=== PATIENT | male | born 1960 | race Caucasian/White ===

== ENCOUNTER 2017-06-07 20:37 | Emergency (ER) | payer MEDICAID ==
[2017-06-07] MEDS ORDERED: KETOROLAC 60 MG/2 ML VIAL IVP STA (20:53)
[2017-06-07] MEDS ORDERED: SODIUM CHLORIDE 0.9% 1,000 ML IV ONE (20:53)
[2017-06-07] MEDS ORDERED: ACETAMINOPHEN 500 MG TABLET PO STA (20:54)
[2017-06-07] MEDS ORDERED: KETOROLAC 15 MG/ML VIAL ONE (21:02)
[2017-06-07] MEDS ORDERED: ACETAMINOPHEN 500 MG TABLET PO ONE (21:02)
[2017-06-07 21:09] LABS: BASOPHILS % (AUTO) 0.5 %; EOSINOPHILS # (AUTO) 0.1 10^3/uL (0.0-0.7); EOSINOPHILS % (AUTO) 1.9 %; HGB - HEMOGLOBIN 15.6 g/dL (14.0-18.0); LYMPHOCYTES # (AUTO) 0.8 10^3/uL (1.5-3.5); LYMPHOCYTES % (AUTO) 14.3 %; MEAN CORPUSCULAR HEMOGLOBIN 32.1 pg (27.0-31.0); MEAN CORPUSCULAR VOLUME 94.4 fL (80.0-94.0); MEAN PLATELET VOLUME 7.5 fL (7.4-11.4); MONOCYTES # (AUTO) 0.5 10^3/uL (0.0-1.0); MONOCYTES % (AUTO) 9.9 %; NEUTROPHILS # (AUTO) 3.9 10^3/uL (1.5-6.6); NEUTROPHILS % (AUTO) 73.4 %; NUCLEATED RED BLOOD CELLS AUTO 0.1 /100WBC; RED BLOOD COUNT 4.87 10^6/uL (4.70-6.10); RED CELL DISTRIBUTION WIDTH 13.7 % (12.0-15.0); UNCORRECTED WHITE BLOOD COUNT 5.3 x10^3/uL; WHITE BLOOD COUNT 5.3 x10^3/uL (4.8-10.8)
[2017-06-07 21:26] LABS: ALBUMIN/GLOBULIN RATIO 1.1 (1.0-2.2); BILIRUBIN,TOTAL 0.8 mg/dL (0.2-1.0); CALCIUM 8.8 mg/dL (8.5-10.3); CREATININE 0.9 mg/dL (0.6-1.2); POTASSIUM 3.9 mmol/L (3.5-5.0); TOTAL PROTEIN 7.8 g/dL (6.7-8.2)
--- NOTE | 2017-06-07 21:46 | XRAY Preliminary Report ---
Exam: XR CHEST 2 VIEW PA/LAT IMPRESSION: Negative chest. [facility] SITE ID: [id number]
--- NOTE | 2017-06-07 21:49 | XRAY Report ---
EXAM: CHEST RADIOGRAPHY EXAM DATE: 06/07/2017 09:20 PM. CLINICAL HISTORY: Fever, cough. COMPARISON: None. TECHNIQUE: 2 views. FINDINGS: Lungs/Pleura: No focal opacities evident. No pleural effusion. No pneumothorax. Normal volumes. Mediastinum: Heart and mediastinal contours are unremarkable. Other: None. IMPRESSION: Negative chest. [facility] Referring Provider Line: [phone] SITE ID: [id number]
--- NOTE | 2017-06-07 21:51 | ED Physician Documentation ---
PD HPI DYSPNEA - Stated complaint Stated Complaint: FLU SYMPTOMS - Chief complaint Chief Complaint: General - History obtained from History obtained from: Patient - History of Present Illness Timing - onset: How many days ago (3) Timing - details: Gradual onset, Still present Inciting event(s): URI Worsened by: Coughing Associated symptoms: Fever, Cough, Diaphoresis. No: Wheezing, Chest pain / discomfort Similar symptoms before: Has not had sx before Recently seen: Not recently seen - Additional information Additional information: Patient is a 57 year old male with no significant past medical history who is presenting to the emergency department for fever, chills, cough and body aches. patient states that he recently went today to [place], the last day he was there he started to get sick with fevers. He flew home a few days ago and the symptoms persisted. Review of Systems Constitutional: reports: Fever, Chills, Myalgias, Sweats Eyes: denies: Decreased vision, Photophobia Ears: denies: Ear pain Nose: reports: Rhinorrhea / runny nose, Congestion, Sinus pressure / pain Throat: denies: Sore throat Cardiac: denies: Chest pain / pressure, Palpitations Respiratory: reports: Dyspnea, Cough. denies: Wheezing GI: denies: Abdominal Pain, Nausea, Vomiting : reports: Reviewed and negative Skin: reports: Reviewed and negative Musculoskeletal: reports: Reviewed and negative Neurologic: denies: Generalized weakness, Focal weakness Immunocompromised: denies: Immunocompromised PD PAST MEDICAL HISTORY - Past Medical History Past Medical History: Yes Cardiovascular: None Respiratory: None Neuro: None Endocrine/Autoimmune: None - Past Surgical History Past Surgical History: Yes General: Colonoscopy - Present Medications Home Medications: Ambulatory Orders Medication Instructions Recorded Confirmed HYDROcod/ACETAM 5/325 [[place] 5/325] 1 - 2 ea PO Q6H PRN #15 tablet 07/02/16 Ondansetron Odt [Zofran] 4 mg TL Q6H PRN #14 tablet 06/07/17 - Allergies Allergies/Adverse Reactions: Allergies Allergy/AdvReac Type Severity Reaction Status Date / Time No Known Drug Allergies Allergy Verified 06/07/17 20:48 - Social History Does the pt smoke?: Yes Smoking Status: Current every day smoker Does the pt drink ETOH?: Yes Does the pt have substance abuse?: No - Immunizations Immunizations are current?: No Immunizations: TDAP >10years/unknown - POLST Patient has POLST: No PD ED PE NORMAL - Vitals Vital signs reviewed: Yes - General General: Alert and oriented X 3, Well developed/nourished, Other (clammy, uncomfortable) - HEENT HEENT: Atraumatic, PERRL - Neck Neck: Supple, no meningeal sign - Cardiac Cardiac: RRR, No murmur - Respiratory Respiratory: Clear bilaterally - Abdomen Abdomen: Soft, Non tender, Non distended - Derm Derm: No rash - Extremities Extremities: No deformity, Normal ROM s pain - Neuro Neuro: Alert and oriented X 3, No motor deficit, No sensory deficit, Normal speech - Psych Psych: Normal mood PD ED PE EXPANDED - HEENT HEENT: Nasal congestion, Rhinorrhea, Dry mucous membranes Results - Vitals Vitals: Vital Signs - 24 hr 06/07/17 06/07/17 06/07/17 20:46 20:52 21:59 Temperature 39.5 C H 38.1 C H Heart Rate 98 100 91 Respiratory 22 20 18 Rate Blood Pressure 160/81 H 124/72 O2 Saturation 97 97 93 Oxygen O2 Source Room air - Labs Labs: Laboratory Tests 06/07/17 06/07/17 06/07/17 21:01 21:01 21:09 WBC 5.3 RBC 4.87 Hgb 15.6 Hct 46.0 MCV 94.4 H MCH 32.1 H MCHC 34.0 RDW 13.7 Plt Count 121 L MPV 7.5 Neut # 3.9 Lymph # 0.8 L [place] # 0.5 Eos # 0.1 Baso # 0.0 Absolute Nucleated RBC 0.00 Nucleated RBC % 0.1 Sodium 132 L Potassium 3.9 Chloride 101 Carbon Dioxide 21 Anion Gap 10.0 BUN 12 Creatinine 0.9 Estimated GFR (MDRD) 87 L Glucose 101 H Calcium 8.8 Total Bilirubin 0.8 AST 27 ALT 30 Alkaline Phosphatase 39 L Total Protein 7.8 Albumin 4.0 Globulin 3.8 Albumin/Globulin Ratio 1.1 Lipase 33 Influenza A (Rapid) POSITIVE H Influenza B (Rapid) Negative Influenza Types A,B Ag + H - Rads (name of study) chest x-ray Radiology: Final report received (normal chest x-ray) PD MEDICAL DECISION MAKING - ED course Complexity details: reviewed old records, reviewed results, re-evaluated patient , considered differential, d/w patient, d/w family ED course: Patient was seen and examined at bedside. IV access was gained and labs were drawn. patient was treated with IV fluids, toradol and tylenol. chest x-ray was performed and was within normal limits. Patient's flu swab came back positive. Patient responded well to therapy, was able to tolerate PO and was stable for discharge with outpatient follow up. Departure - Departure Disposition: Home, Self Care Clinical Impression: Influenza A Condition: Good Instructions: ED Flu Follow-Up: primary,care provider [Other] - As Needed Prescriptions: Ondansetron Odt [Zofran] 4 mg TL Q6H PRN #14 tablet PRN Reason: Nausea / Vomiting Comments: Your symptoms today are being caused by influenza A. It is normally self limited in nature and there is nothing to cure it so we just treat the symptoms. You can take motrin/advil or tylenol as needed for fevers or chills. You can take zofran for nausea and make sure you stay well hydrated. You should drink 80-100oz daily. You may return to the emergency department at any time for new, worsening or uncontrollable symptoms.
[2017-06-07 22:00] VITALS: BP 124/72
== END 2017-06-07 22:05 | disposition home or self-care (01) ==
LOC: ED 20:37
DX: J10.1 Influenza due to other identified influenza virus with other respiratory manifestations (principal); F17.200 Nicotine dependence, unspecified, uncomplicated
CPT/HCPCS: 36415; 71020; 80053; 83690; 85025; 87275; 87276; 96374; 99283; 99284; A9270

== ENCOUNTER 2017-06-16 13:47 | Emergency (ER) | payer MEDICAID ==
--- NOTE | 2017-06-16 14:19 | ED Physician Documentation ---
PD HPI FOCAL NEURO - Stated complaint Stated Complaint: DIZZY - Chief complaint Chief Complaint: Neuro - History obtained from History obtained from: Patient - History of Present Illness Timing - onset: Other (57-year-old gentleman without significant past medical history, family history is unknown because of certain adoption situation. He has had mild vertigo before but today he was sitting watching TV about an hour ago and without really moving or turning his head he developed sudden onset severe vertigo with mild nausea and slight posterior headache. He got up and tried to go to the bathroom and was veering to the left. Symptoms are much better now but not gone he declines medication for this. There is no associated chest pain or trouble breathing.) Review of Systems Ten Systems: 10 systems reviewed and negative Constitutional: reports: Reviewed and negative Nose: reports: Reviewed and negative Throat: reports: Reviewed and negative Cardiac: reports: Reviewed and negative Respiratory: reports: Reviewed and negative PD PAST MEDICAL HISTORY - Past Medical History Past Medical History: No Cardiovascular: None Respiratory: None Neuro: None Endocrine/Autoimmune: None - Past Surgical History Past Surgical History: Yes General: Colonoscopy - Present Medications Home Medications: Ambulatory Orders Medication Instructions Recorded Confirmed Meclizine HCl 1 tab PO Q6H PRN #15 tab.chew 06/16/17 - Allergies Allergies/Adverse Reactions: Allergies Allergy/AdvReac Type Severity Reaction Status Date / Time No Known Drug Allergies Allergy Verified 06/07/17 20:48 - Social History Does the pt smoke?: Yes Smoking Status: Current every day smoker Does the pt drink ETOH?: Yes Does the pt have substance abuse?: No - Family History Family history: reports: None - Immunizations Immunizations are current?: No Immunizations: TDAP >10years/unknown - POLST Patient has POLST: No PD ED PE NORMAL - Vitals Vital signs reviewed: Yes - General General: Alert and oriented X 3, No acute distress - HEENT HEENT: PERRL, EOMI, Other (Slight nystagmus with leftward gaze) - Neck Neck: Supple, no meningeal sign, No bony TTP - Cardiac Cardiac: RRR, No murmur - Respiratory Respiratory: No respiratory distress, Clear bilaterally - Abdomen Abdomen: Soft, Non tender - Neuro Neuro: Alert and oriented X 3, Normal speech - Psych Psych: Normal mood, Normal affect NIHSS - Time Time: 14:10 - Level of Consciousness Level of consciousness: (0) Alert, Keenly responsive LOC Questions: (0) Answers both Q's correct LOC Commands: (0) Performs both correctly - Gaze Best Gaze: (0) Normal - Visual Visual: (0) No loss - Facial Palsy Facial Palsy: (0) Normal, symmetrical movement - Motor Arms (both separate) Motor Arm (right): (0) No drift Motor Arm (left): (0) No drift - Motor Legs (both separate) Motor Leg (right): (0) No drift Motor Leg (left): (0) No drift - Limb Ataxia Limb Ataxia: (0) Absent - Best Language Best Language: (0) No aphasia - Dysarthria Dysarthria: (0) Normal - Extinction and Inattention (formally neg Extinction and inattention: (0) No abnormality Results - Vitals Vitals: Vital Signs - 24 hr 06/16/17 06/16/17 13:53 16:51 Temperature 36.6 C 36.1 C L Heart Rate 88 76 Respiratory 16 20 Rate Blood Pressure 124/84 H 120/76 O2 Saturation 96 94 Oxygen O2 Source Room air - EKG (time done) 1356 Rate: Rate (enter#) (89) Rhythm: NSR Intervals: Other (LAFB) QRS: Normal Ischemia: Normal ST segments Computer interpretation: Agree with computer - Labs Labs: Laboratory Tests 06/16/17 06/16/17 06/16/17 14:30 14:30 14:30 WBC 8.3 RBC 4.97 Hgb 16.2 Hct 46.1 MCV 92.8 MCH 32.7 H MCHC 35.2 RDW 13.9 Plt Count 156 MPV 7.8 Neut # 5.9 Lymph # 1.6 Carter # 0.4 Eos # 0.3 Baso # 0.1 Absolute Nucleated RBC 0.00 Nucleated RBC % 0.1 Sodium 136 Potassium 3.7 Chloride 104 Carbon Dioxide 23 Anion Gap 9.0 BUN 13 Creatinine 0.8 Estimated GFR (MDRD) 100 Glucose 149 H Calcium 9.2 Total Bilirubin 1.0 AST 28 ALT 39 Alkaline Phosphatase 43 Troponin I < 0.04 Total Protein 7.9 Albumin 3.9 Globulin 4.0 Albumin/Globulin Ratio 1.0 Lipase 32 - Rads (name of study) MRI Brain Radiology: EMP read contemporaneously (NAD) PD MEDICAL DECISION MAKING - ED course ED course: 57-year-old gentleman with acute severe vertigo, it is concerning that it started without motion, most cases peripheral vertigo start with head rotation, and this did not. That said there are no findings of stroke on exam, but because of the atypical history and MRI was pursued and was also negative. Departure - Departure Disposition: 01 Home, Self Care Clinical Impression: Vertigo Condition: Good Record reviewed to determine appropriate education?: Yes Instructions: ED Vertigo Unspecified Prescriptions: Meclizine HCl 1 tab PO Q6H PRN #15 tab.chew PRN Reason: Vertigo Comments: Call your doctor to arrange a follow-up appointment, make the next available appointment. In the interim, return anytime if worse or if new symptoms develop.
[2017-06-16 14:37] LABS: BASOPHILS # (AUTO) 0.1 10^3/uL (0.0-0.1); BASOPHILS % (AUTO) 1.1 %; EOSINOPHILS # (AUTO) 0.3 10^3/uL (0.0-0.7); EOSINOPHILS % (AUTO) 3.2 %; HCT - HEMATOCRIT 46.1 % (42.0-52.0); HGB - HEMOGLOBIN 16.2 g/dL (14.0-18.0); LYMPHOCYTES # (AUTO) 1.6 10^3/uL (1.5-3.5); LYMPHOCYTES % (AUTO) 19.8 %; MEAN CORPUSCULAR HEMOGLOBIN 32.7 pg (27.0-31.0); MEAN CORPUSCULAR HGB CONC 35.2 g/dL (32.0-36.0); MEAN CORPUSCULAR VOLUME 92.8 fL (80.0-94.0); MEAN PLATELET VOLUME 7.8 fL (7.4-11.4); MONOCYTES # (AUTO) 0.4 10^3/uL (0.0-1.0); NEUTROPHILS # (AUTO) 5.9 10^3/uL (1.5-6.6); NEUTROPHILS % (AUTO) 70.9 %; NUCLEATED RED BLOOD CELLS AUTO 0.1 /100WBC; RED BLOOD COUNT 4.97 10^6/uL (4.70-6.10); RED CELL DISTRIBUTION WIDTH 13.9 % (12.0-15.0); UNCORRECTED WHITE BLOOD COUNT 8.3 x10^3/uL; WHITE BLOOD COUNT 8.3 x10^3/uL (4.8-10.8)
[2017-06-16 14:50] LABS: CALCIUM 9.2 mg/dL (8.5-10.3); CREATININE 0.8 mg/dL (0.6-1.2); POTASSIUM 3.7 mmol/L (3.5-5.0); TOTAL PROTEIN 7.9 g/dL (6.7-8.2)
[2017-06-16] MEDS ORDERED: diazePAM INJ 5 MG/ML SYRINGE IVP STA (15:25)
[2017-06-16] MEDS ORDERED: LORazepam 2 MG/ML SYRINGE IVP STA (15:28)
[2017-06-16] MEDS ORDERED: LORazepam 2 MG/ML SYRINGE ONE (15:34)
[2017-06-16 16:52] VITALS: BP 120/76
--- NOTE | 2017-06-16 16:52 | MRI Preliminary Report ---
Exam: MRI BRAIN W/O Impression: 1. Unremarkable, unenhanced MRI examination of the internal auditory canals. In particular, there is no evidence of a vestibular schwannoma. 2. Unremarkable MRI examination of the brain. In particular, no evidence of infarction, hemorrhage or other acute pathology SITE ID: [id number]
--- NOTE | 2017-06-16 17:18 | MRI Report ---
MRI BRAIN AND INTERNAL AUDITORY CANALS WITHOUT CONTRAST INDICATION: 57-year-old male with sudden onset severe vertigo with mild nausea and posterior headache . Please assess. TECHNIQUE: 1. T1 sagittal and fat-saturated T2 coronal. 2. Axial T1 MP RAGE, FLAIR, T2, T2* and DWI. 3. Thin slice, high-resolution, balanced FFE axial (IACs). COMPARISON: None. FINDINGS: Internal auditory canals The distal cochlear nerve bundles are well seen in the CP angle cisterns and internal auditory canals bilaterally. No focal mass lesion is demonstrated. Normal fluid-filled spaces are seen in the distri bution of the cochlea, vestibules and semicircular canals bilaterally. There is no dehiscence of eith er superior semicircular canal. Brain There is mild generalized prominence of the cerebral cortical sulci and third and lateral ventricles, within normal limits for stated age. No hydrocephalus. Signal intensity of cortex and white matter appears normal. Flow voids are demonstrated in the main intracranial arteries. No abnormal diffusion restriction is d emonstrated. No evidence of acute or chronic hemorrhage on T2* GRE sequence. Limited assessment of the orbits reveals no gross pathology. There is circumferential, polypoid mucosal thickening in the right maxillary sinus. No definite air-f luid level is demonstrated. There is minor mucosal thickening scattered throughout the ethmoid air ce lls. The paranasal sinuses are otherwise clear. No mastoid or middle ear effusion is demonstrated. Marrow signal intensity in the regional skeletal structures is unremarkable. IMPRESSION: 1. Unremarkable, unenhanced MRI examination of the internal auditory canals. In particular, there is no evidence of a vestibular schwannoma. 2. Unremarkable MRI examination of the brain. In particular, no evidence of infarction, hemorrhage or other acute pathology. Referring Provider Line: [phone] SITE ID: [id number]
== END 2017-06-16 17:21 | disposition home or self-care (01) ==
LOC: ED 13:47
DX: R42 Dizziness and giddiness (principal); I44.4 Left anterior fascicular block; F17.200 Nicotine dependence, unspecified, uncomplicated
CPT/HCPCS: 36415; 70551; 80053; 83690; 84484; 85025; 93005; 96374; 99283; 99284; J2060

== ENCOUNTER 2018-10-06 14:06 | Emergency (ER) | payer MEDICAID ==
[2018-10-06 14:20] VITALS: BP 136/86
[2018-10-06] MEDS ORDERED: DEXAMETHASONE 10 MG/ML VIAL PO STA (14:38)
--- NOTE | 2018-10-06 14:40 | ED Physician Documentation ---
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 He is developed some swelling and pain in that area and when he blows his nose he is getting a lot of foul-smelling green drainage. He has not had fever with this he has not had sinusitis previously. He does indicate that pain is gone into his ear on the left side and on his face up to his eye. Review of Systems Constitutional: denies: Fever Eyes: denies: Decreased vision Ears: reports: Ear pain Nose: reports: Rhinorrhea / runny nose, Congestion, Sinus pressure / pain Throat: denies: Sore throat Cardiac: denies: Chest pain / pressure, Palpitations Respiratory: denies: Dyspnea, Cough GI: denies: Vomiting PD PAST MEDICAL HISTORY - Past Medical History Past Medical History: No Cardiovascular: None Respiratory: None Endocrine/Autoimmune: None - Past Surgical History Past Surgical History: Yes General: Colonoscopy - Present Medications Home Medications: Ambulatory Orders Medication Instructions Recorded Confirmed Amox/Clav 875/125 [Augmentin] 1 each PO Q12H #20 tablet 10/06/18 - Allergies Allergies/Adverse Reactions: Allergies Allergy/AdvReac Type Severity Reaction Status Date / Time No Known Drug Allergies Allergy Verified 10/06/18 14:20 - Social History Does the pt smoke?: Yes Smoking Status: Current every day smoker Does the pt drink ETOH?: Yes Does the pt have substance abuse?: No - Immunizations Immunizations are current?: No Immunizations: TDAP >10years/unknown - POLST Patient has POLST: No PD ED PE NORMAL - Vitals Vital signs reviewed: Yes (hypertension ) - General General: Alert and oriented X 3, No acute distress, Well developed/nourished - HEENT HEENT: Atraumatic, PERRL, EOMI, Other (There is central erythema and rounding of the umbo on the left the right is obscured by cerumen and this is removed partially to reveal some peripheral erythema to the TM. There is maxillary and frontal sinus point tenderness on the right only. 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 2-12 intact, No motor deficit, No sensory deficit, Normal speech Eye Opening: Spontaneous Motor: Obeys Commands Verbal: Oriented GCS Score: 15 - Psych Psych: Normal mood, Normal affect Results - Vitals Vitals: Vital Signs - 24 hr 10/06/18 14:10 Temperature 36.8 C Heart Rate 88 Respiratory 16 Rate Blood Pressure 136/86 H O2 Saturation 97 Oxygen O2 Source Room air PD MEDICAL DECISION MAKING - ED course Complexity details: considered differential, d/w patient, d/w family ED course: 58-year-old male with left maxillary sinusitis is administered dexamethasone 10 mg orally here in the emergency department. Departure - Departure Disposition: Home, Self Care Clinical Impression: Sinusitis Qualifiers: Sinusitis location: maxillary Chronicity: acute Recurrence: not specified as recurrent Qualified Code(s): J01.00 - Acute maxillary sinusitis, unspecified Condition: Stable Instructions: ED Sinusitis Abx Tx Follow-Up: [facility] [Provider Group] Prescriptions: Amox/Clav 875/125 [Augmentin] 1 each PO Q12H #20 tablet
== END 2018-10-06 14:50 | disposition home or self-care (01) ==
LOC: ED 14:06
DX: J01.00 Acute maxillary sinusitis, unspecified (principal); F17.200 Nicotine dependence, unspecified, uncomplicated
CPT/HCPCS: 99283

== ENCOUNTER 2020-06-06 03:19 | Outpatient (CLI) | payer MEDICAID | END 2020-06-06 03:20 | disposition critical access hospital (66) | LOC: EMS 03:19 | PROVIDERS: ATTEND Surgery | DX: R56.9 Unspecified convulsions (principal); R61 Generalized hyperhidrosis | CPT/HCPCS: A0425; A0427; A0999 ==

== ENCOUNTER 2020-06-06 03:32 | Emergency (ER) | payer MEDICAID ==
[2020-06-06] MEDS ORDERED: SODIUM CHLORIDE 0.9% 1,000 ML IV STA ×2 (03:44→05:06)
[2020-06-06 04:00] LABS: BASOPHILS # (AUTO) 0.1 10^3/uL (0.0-0.1); BASOPHILS % (AUTO) 0.6 %; EOSINOPHILS # (AUTO) 0.2 10^3/uL (0.0-0.7); EOSINOPHILS % (AUTO) 2.3 %; HGB - HEMOGLOBIN 16.9 g/dL (14.0-18.0); LYMPHOCYTES # (AUTO) 1.3 10^3/uL (1.5-3.5); LYMPHOCYTES % (AUTO) 15.1 %; MEAN CORPUSCULAR HEMOGLOBIN 33.3 pg (27.0-31.0); MEAN CORPUSCULAR HGB CONC 33.9 g/dL (32.0-36.0); MEAN CORPUSCULAR VOLUME 98.2 fL (80.0-94.0); MEAN PLATELET VOLUME 9.1 fL (7.4-11.4); MONOCYTES # (AUTO) 0.6 10^3/uL (0.0-1.0); MONOCYTES % (AUTO) 6.8 %; NEUTROPHILS # (AUTO) 6.5 10^3/uL (1.5-6.6); NEUTROPHILS % (AUTO) 74.7 %; PLT - PLATELET COUNT 161 10^3/uL (130-450); RED BLOOD COUNT 5.07 10^6/uL (4.70-6.10); WHITE BLOOD COUNT 8.7 x10^3/uL (4.8-10.8)
[2020-06-06 04:12] LABS: ALBUMIN 4.4 g/dL (3.2-5.5); ALBUMIN/GLOBULIN RATIO 1.1 (1.0-2.2); ALKALINE PHOSPHATASE 46 IU/L (42-121); ALT ALANINE AMINOTRANSFERASE 29 IU/L (10-60); AST ASPARTATE AMINOTRANSFERASE 25 IU/L (10-42); BILIRUBIN,TOTAL 1.3 mg/dL (0.2-1.0); BUN - BLOOD UREA NITROGEN 19 mg/dL (6-20); CALCIUM 9.5 mg/dL (8.5-10.3); CARBON DIOXIDE - CO2 21 mmol/L (21-32); CHLORIDE 104 mmol/L (101-111); CREATININE 0.9 mg/dL (0.6-1.2); GLUCOSE 186 mg/dL (70-100); LIPASE 29 U/L (22-51); SODIUM 136 mmol/L (135-145); TOTAL PROTEIN 8.4 g/dL (6.7-8.2)
--- NOTE | 2020-06-06 04:13 | ED Physician Documentation ---
History of Present Illness - Stated complaint Stated Complaint: POSS SZ - Chief complaint Chief Complaint: Neuro - History obtained from History obtained from: Patient, EMS - Additonal information Additional information: Is brought to the emergency department by EMS after being found to have seizure- like activity tonight while lying in bed. His observed him to have shaking of his limbs and EMS reports that the patient seemed postictal for about 15 minutes while on their care. The patient is now alert and oriented, but does not remember the incident. He states that he has not felt well for the last couple of days with some nausea. He states he has not been able to sleep very well for the last 2 nights, due to not sleeping well. Feeling well. He states he has a mild headache right now. No recent head injury. No personal or family history of seizures that he knows of, though he states that he does not really know his biological family. Patient states he drinks alcohol regularly but has not been drinking heavily and has not had a recent lapse in drinking. No recent diarrhea. Patient states as far as he knows he is otherwise healthy. No other complaints at this time. Review of Systems Ten Systems: 10 systems reviewed and negative Constitutional: reports: Reviewed and negative Eyes: reports: Reviewed and negative Ears: reports: Reviewed and negative Nose: reports: Reviewed and negative Throat: reports: Reviewed and negative Cardiac: reports: Reviewed and negative Respiratory: reports: Reviewed and negative GI: reports: Nausea, Reviewed and negative : reports: Reviewed and negative Skin: reports: Reviewed and negative Musculoskeletal: reports: Reviewed and negative Neurologic: reports: Headache Psychiatric: reports: Reviewed and negative Endocrine: reports: Reviewed and negative Immunocompromised: reports: Reviewed and negative PD PAST MEDICAL HISTORY - Past Medical History Past Medical History: Yes Cardiovascular: None Respiratory: None Endocrine/Autoimmune: None - Past Surgical History Past Surgical History: Yes General: Colonoscopy - Present Medications Home Medications: Ambulatory Orders Medication Instructions Recorded Confirmed Amox/Clav 875/125 [Augmentin] 1 each PO Q12H #20 tablet 10/06/18 - Allergies Allergies/Adverse Reactions: Allergies Allergy/AdvReac Type Severity Reaction Status Date / Time No Known Drug Allergies Allergy Verified 06/06/20 03:37 - Social History Does the pt smoke?: Yes Smoking Status: Current every day smoker Does the pt drink ETOH?: Yes Does the pt have substance abuse?: No - Immunizations Immunizations are current?: No Immunizations: TDAP >10years/unknown - POLST Patient has POLST: No PD ED PE NORMAL - Vitals Vital signs reviewed: Yes - General General: Alert and oriented X 3, No acute distress, Well developed/nourished - HEENT HEENT: Atraumatic, PERRL, EOMI, Moist mucous membranes - Neck Neck: Supple, no meningeal sign - Cardiac Cardiac: RRR, No murmur, Strong equal pulses - Respiratory Respiratory: No respiratory distress, Clear bilaterally - Abdomen Abdomen: Soft, Non tender, Non distended - Back Back: No CVA TTP, No spinal TTP - Derm Derm: Normal color, Warm and dry, No rash - Extremities Extremities: No deformity, No edema, No calf tenderness / cord - Neuro Neuro: Alert and oriented X 3, lav crewman 2-12 intact, No motor deficit, No sensory deficit, Normal speech - Psych Psych: Normal mood, Other (Slightly anxious.) Results - Vitals Vitals: Oxygen O2 Source Room air - Labs Labs: Laboratory Tests 06/06/20 06/06/20 06/06/20 03:55 03:55 05:09 WBC 8.7 RBC 5.07 Hgb 16.9 Hct 49.8 MCV 98.2 H MCH 33.3 H MCHC 33.9 RDW 14.0 Plt Count 161 MPV 9.1 Neut # (Auto) 6.5 Lymph # (Auto) 1.3 L [place] # (Auto) 0.6 Eos # (Auto) 0.2 Baso # (Auto) 0.1 Absolute Nucleated RBC 0.00 Nucleated RBC % 0.0 Sodium 136 Potassium 4.4 Chloride 104 Carbon Dioxide 21 Anion Gap 11.0 BUN 19 Creatinine 0.9 Estimated GFR (MDRD) 86 L Glucose 186 H Calcium 9.5 Total Bilirubin 1.3 H AST 25 ALT 29 Alkaline Phosphatase 46 Total Protein 8.4 H Albumin 4.4 Globulin 4.0 Albumin/Globulin Ratio 1.1 Lipase 29 Urine Color YELLOW Urine Clarity CLEAR Urine pH 7.0 Ur Specific [place] 1.025 Urine Protein 100 H Urine Glucose (UA) NEGATIVE Urine Ketones NEGATIVE Urine Occult Blood TRACE-INTA Urine Nitrite NEGATIVE Urine Bilirubin NEGATIVE Urine Urobilinogen 0.2 (NORMAL) Ur Leukocyte Esterase NEGATIVE Urine RBC 0-5 Urine WBC 0-3 Ur Squamous Epith Cells NONE SEEN Urine Bacteria None Seen Urine Mucus Few Strands Ur Microscopic Review INDICATED Urine Culture Comments NOT INDICATED Urine Opiates Screen NEGATIVE Ur Oxycodone Screen NEGATIVE Urine Methadone Screen NEGATIVE Ur Propoxyphene Screen NEGATIVE Ur Barbiturates Screen NEGATIVE Ur Tricyclics Screen NEGATIVE Ur Phencyclidine Scrn NEGATIVE Ur Amphetamine Screen NEGATIVE U Methamphetamines Scrn NEGATIVE U Benzodiazepines Scrn NEGATIVE Urine Cocaine Screen NEGATIVE U Cannabinoids Screen POSITIVE H Ethyl Alcohol < 5.0 - Rads (name of study) ct head Radiology: Final report received, EMP read indepedently, See rad report (Left maxillary sinus thickening, otherwise unremarkable.) PD MEDICAL DECISION MAKING - ED course Complexity details: reviewed old records, reviewed results, re-evaluated patient, considered differential, d/w patient ED course: The patient was worked up with labs, EKG, urine drug screen, and CT scan of the head. He was given a 1 L bolus point and normal saline, as well as Zofran for his nausea. And had no more seizure-like activity in the emergency department. His work-up was unremarkable. I discussed with the patient, who is fully alert and oriented at this time, that the next step is to follow-up with neurology for EEG and reevaluation. If the patient has further seizure-like activity in the next couple of days, he will need to return, as admission will most likely be warranted at that time. I have discussed with the patient that we are not going to start him on any anticonvulsants today. We have discussed home management of the symptoms, as well as the usual indications for return. Departure - Departure Disposition: 01 Home, Self Care Clinical Impression: New onset seizure Condition: Stable Instructions: Epilepsy Safety During Seizure Follow-Up: Cindy Chang MD [Physician No Access] - Sam Wright MD [Physician No Access] - Lilliana Israel MD [Physician No Access] - Jose Tam MD [Physician No Access] - AILIN MOON MD [Physician No Access] - KAMRYN NUÑEZ MD [Physician No Access] - Comments: Your labs, head CT, and urinalysis all look good. It is not clear exactly what has happened tonight, though it very well may indeed have been a seizure. As we have discussed, the next step is for you to follow-up with neurology and have an EEG, or electrical brainwave study, done. If you have further seizures in the next 24 hours, then you may need to stay in the hospital. For now, though, you may go back to your home, but should call as soon as possible to make an appointment to follow-up with both your primary care physician and neurology. Depending how your EEG looks and whether you have any further episodes like this, the neurologist will determine whether to put you on medication. As we have discussed, sometimes a person can have a single seizure without apparent explanation, and this turns out to be a one-time experience which never happens again. Others go on to have more seizures at various intervals throughout their lives. Only time will tell what will be the case with you. Please avoid alcohol and get as good of sleep as possible, as both alcohol and the cessation of its use, as well as insomnia and stress, are triggers for seizure in those who are more prone. Discharge Date/Time: 06/06/20 06:06
[2020-06-06] MEDS ORDERED: ONDANSETRON 4 MG/2 ML VIAL IVP STA (04:22)
[2020-06-06 05:10] LABS: MUDS CUTOFF CONCENTRATIONS CUTOFF CONC BELOW:
[2020-06-06 05:14] LABS: BILIRUBIN,URINE NEGATIVE (NEGATIVE); GLUCOSE, URINE (UA) NEGATIVE (NEGATIVE); KETONES,URINE (UA) NEGATIVE (NEGATIVE); LEUKOCYTE ESTERASE, URINE NEGATIVE (NEGATIVE); NITRITE,URINE NEGATIVE (NEGATIVE); OCCULT BLOOD,URINE TRACE-INTA (NEGATIVE); PROTEIN,URINE 100 mg/dL (NEGATIVE); UROBILINOGEN,URINE 0.2 (NORMAL) E.U./dL (NORMAL)
[2020-06-06 05:18] LABS: CLARITY,URINE CLEAR (CLEAR)
[2020-06-06 05:20] LABS: BACTERIA,URINE None Seen /HPF (None Seen); MUCUS,URINE Few Strands; RBC,URINE 0-5 /HPF (0-5); SQUAMOUS EPITHELIAL CELL,UR NONE SEEN (<= Few)
[2020-06-06 05:25] LABS: AMPHETAMINE SCREEN,URINE NEGATIVE (NEGATIVE); BENZODIAZEPINES SCREEN, URINE NEGATIVE (NEGATIVE); COCAINE SCREEN URINE NEGATIVE (NEGATIVE); METHADONE SCREEN, URINE NEGATIVE (NEGATIVE); METHAMPHETAMINES SCREEN, URINE NEGATIVE (NEGATIVE); OPIATE SCREEN, URINE NEGATIVE (NEGATIVE); OXYCODONE SCREEN, URINE NEGATIVE (NEGATIVE); PROPOXYPHENE SCREEN, URINE NEGATIVE (NEGATIVE); TRICYCLIC ANTIDEPRESSANT,URINE NEGATIVE (NEGATIVE)
[2020-06-06 05:52] VITALS: BP 142/80
--- NOTE | 2020-06-06 07:22 | CT Report ---
PROCEDURE: HEAD WO INDICATIONS: seizure-like activity, new-onset TECHNIQUE: Noncontrast 4.5 mm thick angled axial sections acquired from the foramen magnum to the vertex. For r adiation dose reduction, the following was used: automated exposure control, adjustment of mA and/or kV according to patient size. COMPARISON: 06/16/2017 MRI. FINDINGS: Image quality: Excellent. CSF spaces: Basal cisterns are patent. No extra-axial fluid collections. Ventricles are normal in size and shape. Brain: No midline shift. No intracranial masses or hemorrhage. Kitchen-white matter interface is norm al. Skull and face: Calvarium and visualized facial bones are intact, without suspicious lesions. Sinuses: Mucosal thickening visualized left maxillary sinus. Mastoids are clear. IMPRESSION: 1. No acute intracranial disease process. 2. Left maxillary sinus mucosal thickening which could be due to sinusitis or less likely mucocele.. Reviewed by: Smitha Cano MD, PhD on 06/06/2020 7:21 AM PST Approved by: Smitha Cano MD, PhD on 06/06/2020 7:21 AM PST Station ID: [id number]
== END 2020-06-06 06:06 | disposition home or self-care (01) ==
LOC: EDUNIT# → ED 03:32
DX: R56.9 Unspecified convulsions (principal); R11.0 Nausea; I44.60 Unspecified fascicular block; F17.200 Nicotine dependence, unspecified, uncomplicated
CPT/HCPCS: 36415; 70450; 80053; 80306; 80320; 81001; 81003; 83690; 85025; 87086; 93005; 96361; 96374; 99285

== ENCOUNTER 2021-03-19 10:00 | Emergency (ER) | payer MEDICAID ==
[2021-03-19] MEDS ORDERED: MECLIZINE 12.5 MG TABLET PO STA (10:50)
--- NOTE | 2021-03-19 11:17 | ED Physician Documentation ---
History of Present Illness - Stated complaint Stated Complaint: DIZZY - Chief complaint Chief Complaint: Neuro - History obtained from History obtained from: Patient - History of Present Illness Timing: Today Pain level max: 0 Pain level now: 0 - Additonal information Additional information: Patient is a 61-year-old male who presents to the emergency department with feeling like the room was spinning to the left earlier today. He states that occurred while driving. Worse with moving his head and standing. He states the symptoms were bad for about 3 to 4 minutes. Has had similar symptoms previously, though did not last as long and were not as severe. No trauma. No recent illness. No medication changes. No focal weakness or numbness. Review of Systems Ten Systems: 10 systems reviewed and negative Constitutional: denies: Fever, Chills Respiratory: denies: Cough GI: denies: Vomiting, Diarrhea Skin: denies: Rash Musculoskeletal: denies: Neck pain, Back pain Neurologic: denies: Headache PD PAST MEDICAL HISTORY - Past Medical History Past Medical History: Yes Cardiovascular: None Respiratory: None Neuro: None Endocrine/Autoimmune: None GI: None : None HEENT: None Psych: None Musculoskeletal: Chronic back pain Derm: None - Past Surgical History Past Surgical History: Yes General: Colonoscopy - Present Medications Home Medications: Ambulatory Orders Medication Instructions Recorded Confirmed Meclizine HCl [Motion Sickness] 25 mg PO Q6H PRN #30 tablet 03/19/21 - Allergies Allergies/Adverse Reactions: Allergies Allergy/AdvReac Type Severity Reaction Status Date / Time No Known Drug Allergies Allergy Verified 03/19/21 10:12 - Social History Does the pt smoke?: Yes Smoking Status: Current every day smoker Does the pt drink ETOH?: Yes Does the pt have substance abuse?: Yes Substance Use and Type: Marijuana - Immunizations Immunizations are current?: No Immunizations: TDAP >10years/unknown, Other immun not current - POLST Patient has POLST: No PD ED PE NORMAL - Vitals Vital signs reviewed: Yes - General General: Alert and oriented X 3, No acute distress - HEENT HEENT: Atraumatic, PERRL, EOMI, Moist mucous membranes - Neck Neck: Supple, no meningeal sign - Cardiac Cardiac: RRR, Strong equal pulses - Respiratory Respiratory: No respiratory distress, Clear bilaterally - Abdomen Abdomen: Soft, Non tender, Non distended - Back Back: No spinal TTP - Derm Derm: Warm and dry - Extremities Extremities: No edema, No calf tenderness / cord - Neuro Neuro: Alert and oriented X 3, software development test engineer 2-12 intact, No motor deficit, No sensory deficit, Normal speech, Other (No nystagmus. Negative Hallpike bilaterally.) Eye Opening: Spontaneous Motor: Obeys Commands Verbal: Oriented GCS Score: 15 - Psych Psych: Normal mood, Normal affect Results - Vitals Vitals: Vital Signs - 24 hr 03/19/21 03/19/21 03/19/21 10:13 10:21 12:45 Temperature 36.4 C L 37.3 C Heart Rate 68 67 85 Respiratory 18 18 18 Rate Blood Pressure 145/77 H 151/88 H 174/94 H O2 Saturation 97 100 97 Oxygen O2 Source Room air - EKG (time done) 1102 Rate: Rate (enter#) (61) Rhythm: NSR [place]: Normal, Anterior hemiblock (LAFB) Intervals: Prolonged HI QRS: LVH Ischemia: Normal ST segments - Labs Labs: Laboratory Tests 03/19/21 03/19/21 03/19/21 11:21 11:21 11:21 WBC 5.7 RBC 4.79 Hgb 16.1 Hct 47.5 MCV 99.2 H MCH 33.6 H MCHC 33.9 RDW 13.5 Plt Count 150 MPV 9.0 Neut # (Auto) 3.6 Lymph # (Auto) 1.3 L [place] # (Auto) 0.5 Eos # (Auto) 0.3 Baso # (Auto) 0.0 Absolute Nucleated RBC 0.00 Nucleated RBC % 0.0 Sodium 136 Potassium 4.3 Chloride 100 L Carbon Dioxide 26 Anion Gap 10.0 BUN 10 Creatinine 0.8 Estimated GFR (MDRD) 99 Glucose 100 Calcium 9.2 Total Bilirubin 1.0 AST 22 ALT 23 Alkaline Phosphatase 47 Troponin I High Sens 14.1 Total Protein 8.0 Albumin 4.1 Globulin 3.9 Albumin/Globulin Ratio 1.1 Lipase 35 PD MEDICAL DECISION MAKING - ED course Complexity details: reviewed results, re-evaluated patient, considered differential, d/w patient ED course: Patient with what appears to be an episode of BPPV earlier. Asymptomatic here. No acute findings on laboratory testing. No indication for emergent neuroimaging. NIH stroke scale of 0. We will prescribe meclizine as needed. I will have him follow-up with his doctor for further care. Patient counseled regarding signs and symptoms for which I believe and urgent re-evaluation would be necessary. Patient with good understanding of and agreement to plan and is comfortable going home at this time This document was made in part using voice recognition software. While efforts are made to proofread this document, sound alike and grammatical errors may occur. Departure - Departure Disposition: 01 Home, Self Care Clinical Impression: BPPV (benign paroxysmal positional vertigo) Qualifiers: Laterality: unspecified laterality Qualified Code(s): H81.10 - Benign paroxysmal vertigo, unspecified ear Condition: Good Instructions: ED BPV Vertigo Follow-Up: your,doctor in 1 week [Other] Prescriptions: Meclizine HCl [Motion Sickness] 25 mg PO Q6H PRN #30 tablet PRN Reason: Dizziness Comments: Your prescription was sent to [facility] in [place]. Please follow-up with your doctor for further care. Return if you worsen. Discharge Date/Time: 03/19/21 13:10 NIHSS - Time Time: 10:20 - Level of Consciousness Level of consciousness: (0) Alert, Keenly responsive LOC Questions: (0) Answers both Q's correct LOC Commands: (0) Performs both correctly - Gaze Best Gaze: (0) Normal - Visual Visual: (0) No loss - Facial Palsy Facial Palsy: (0) Normal, symmetrical movement - Motor Arms (both separate) Motor Arm (right): (0) No drift Motor Arm (left): (0) No drift - Motor Legs (both separate) Motor Leg (right): (0) No drift Motor Leg (left): (0) No drift - Limb Ataxia Limb Ataxia: (0) Absent - Sensory Sensory: (0) Normal - Best Language Best Language: (0) No aphasia - Dysarthria Dysarthria: (0) Normal - Extinction and Inattention (formally neg Extinction and inattention: (0) No abnormality - Total Score/Results Total Score/Result: 0
[2021-03-19 11:30] LABS: BASOPHILS % (AUTO) 0.7 %; EOSINOPHILS # (AUTO) 0.3 10^3/uL (0.0-0.7); EOSINOPHILS % (AUTO) 4.5 %; HCT - HEMATOCRIT 47.5 % (42.0-52.0); HGB - HEMOGLOBIN 16.1 g/dL (14.0-18.0); LYMPHOCYTES # (AUTO) 1.3 10^3/uL (1.5-3.5); LYMPHOCYTES % (AUTO) 23.2 %; MEAN CORPUSCULAR HEMOGLOBIN 33.6 pg (27.0-31.0); MEAN CORPUSCULAR HGB CONC 33.9 g/dL (32.0-36.0); MEAN CORPUSCULAR VOLUME 99.2 fL (80.0-94.0); MONOCYTES # (AUTO) 0.5 10^3/uL (0.0-1.0); NEUTROPHILS # (AUTO) 3.6 10^3/uL (1.5-6.6); NEUTROPHILS % (AUTO) 63.4 %; PLT - PLATELET COUNT 150 10^3/uL (130-450); RED BLOOD COUNT 4.79 10^6/uL (4.70-6.10); RED CELL DISTRIBUTION WIDTH 13.5 % (12.0-15.0); WHITE BLOOD COUNT 5.7 x10^3/uL (4.8-10.8)
[2021-03-19 11:41] LABS: ALBUMIN 4.1 g/dL (3.2-5.5); ALBUMIN/GLOBULIN RATIO 1.1 (1.0-2.2); CALCIUM 9.2 mg/dL (8.5-10.3); CREATININE 0.8 mg/dL (0.6-1.2); POTASSIUM 4.3 mmol/L (3.5-5.0)
[2021-03-19 12:46] VITALS: BP 174/94
== END 2021-03-19 13:10 | disposition home or self-care (01) ==
LOC: ED 10:00
DX: H81.10 Benign paroxysmal vertigo, unspecified ear (principal); F17.200 Nicotine dependence, unspecified, uncomplicated; I44.4 Left anterior fascicular block
CPT/HCPCS: 36415; 80053; 83690; 84484; 85025; 93005; 99284; A9270

== ENCOUNTER 2021-07-31 11:08 | Outpatient (CLI) | payer MEDICAID | END 2021-07-31 11:09 | disposition critical access hospital (66) | LOC: EMS 11:08 | DX: S01.81XA Laceration without foreign body of other part of head, initial encounter (principal); R41.0 Disorientation, unspecified; M54.9 Dorsalgia, unspecified; M54.2 Cervicalgia; W18.39XA Other fall on same level, initial encounter; Y92.512 Supermarket, store or market as the place of occurrence of the external cause | CPT/HCPCS: A0425; A0427; A0999 ==

== ENCOUNTER 2021-07-31 11:37 | Emergency (ER) | payer MEDICAID ==
[2021-07-31] MEDS ORDERED: LORazepam 2 MG/ML VIAL IVP STA ×2 (11:52→15:54)
[2021-07-31] MEDS ORDERED: SODIUM CHLORIDE 0.9% 1,000 ML IV STA (11:52)
--- NOTE | 2021-07-31 11:58 | ED Physician Documentation ---
History of Present Illness - Stated complaint Stated Complaint: HEAD INJURY - History obtained from History obtained from: Patient, EMS - Additonal information Additional information: The patient is brought to the emergency department by EMS for chief complaint of syncopal episode and head injury. 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 The patient was unconscious for a couple of minutes, then began to come to and when EMS arrived, the patient was starting to arouse and become combative. The patient has been combative during the entire trip here in the ambulance. He was flailing and agitated and yelling and they finally had to give him Versed in route. Medics state this has helped calm the patient down. The patient states that his neck hurts and he wants to be off the backboard and out of the c-collar. He denies any visual changes. Medics have not noticed any deficits in movement or strength. The patient has been articulating clearly, but confused. The patient does not have any recollection of the incident. He denies use of any drugs or alcohol. Review of the patient's records reveals that the patient was seen here a little over a year ago by myself for seizure-like activity while in bed at night. At that time he admitted to drinking regularly although he had not been drinking at that very time. He had had a positive drug screen for marijuana, which he had already admitted to using, but no other drugs, and alcohol was negative. It is not clear whether the patient ever followed up to determine whether he had true seizures or not. Review of Systems Ten Systems: 10 systems reviewed and negative Constitutional: reports: Reviewed and negative Eyes: reports: Reviewed and negative Ears: reports: Reviewed and negative Nose: reports: Reviewed and negative Throat: reports: Reviewed and negative Cardiac: reports: Reviewed and negative Respiratory: reports: Reviewed and negative GI: reports: Reviewed and negative : reports: Reviewed and negative Skin: reports: Reviewed and negative Musculoskeletal: reports: Neck pain Neurologic: reports: Head injury Psychiatric: reports: Reviewed and negative Endocrine: reports: Reviewed and negative Immunocompromised: reports: Reviewed and negative PD PAST MEDICAL HISTORY - Past Medical History Cardiovascular: None Respiratory: None Neuro: None Endocrine/Autoimmune: None GI: None : None HEENT: None Psych: None Musculoskeletal: Chronic back pain Derm: None - Past Surgical History Past Surgical History: Yes General: Colonoscopy - Present Medications Home Medications: Ambulatory Orders Medication Instructions Recorded Confirmed Meclizine HCl [Motion Sickness] 25 mg PO Q6H PRN #30 tablet 03/19/21 - Allergies Allergies/Adverse Reactions: Allergies Allergy/AdvReac Type Severity Reaction Status Date / Time No Known Drug Allergies Allergy Verified 07/31/21 11:56 - Social History Does the pt smoke?: Yes Smoking Status: Current every day smoker Does the pt drink ETOH?: Yes Does the pt have substance abuse?: Yes - Immunizations Immunizations are current?: No Immunizations: TDAP >10years/unknown, Other immun not current - POLST Patient has POLST: No PD ED PE NORMAL - Vitals Vital signs reviewed: Yes - General General: Other (Agitated, anxious patient with no respiratory distress.) - HEENT HEENT: PERRL, EOMI, Moist mucous membranes, Other (Skin tears on forehead and over nasal bridge. No deformity, bony depression, or step-off. No crepitus. No facial swelling or contusion.) - Neck Neck: No bony TTP - Cardiac Cardiac: RRR, No murmur - Respiratory Respiratory: No respiratory distress, Clear bilaterally - Abdomen Abdomen: Soft, Non tender, Non distended - Back Back: No CVA TTP, No spinal TTP - Derm Derm: Normal color, Warm and dry, No rash, Other (Skin tears as noted above on f orehead and face) - Extremities Extremities: No deformity, No edema - Neuro Neuro: Alert and oriented X 3, test clerk 2-12 intact, Normal speech - Psych Psych: Normal mood, Normal affect Results - Vitals Vitals: Oxygen O2 Source Room air - Labs Labs: Laboratory Tests 07/31/21 07/31/21 11:43 11:43 WBC 8.6 RBC 4.76 Hgb 15.2 Hct 45.4 MCV 95.4 H MCH 31.9 H MCHC 33.5 RDW 13.3 Plt Count 153 MPV 10.1 Neut # (Auto) 6.3 Lymph # (Auto) 1.6 [place] # (Auto) 0.4 Eos # (Auto) 0.2 Baso # (Auto) 0.1 Absolute Nucleated RBC 0.00 Nucleated RBC % 0.0 Sodium 133 L Potassium 4.1 Chloride 100 L Carbon Dioxide 23 Anion Gap 10.0 BUN 13 Creatinine 0.8 Estimated GFR (MDRD) 99 Glucose 149 H Calcium 9.2 Total Bilirubin 0.9 AST 21 ALT 15 Alkaline Phosphatase 55 Total Protein 8.1 Albumin 4.2 Globulin 3.9 Albumin/Globulin Ratio 1.1 Lipase 34 - Rads (name of study) CT brain Radiology: Final report received, EMP read indepedently, See rad report (nad) CT C-spine Radiology: Final report received, EMP read indepedently, See rad report (nad) CT face Radiology: Final report received, EMP read indepedently, See rad report MR brain Radiology: Final report received, EMP read indepedently, See rad report (neg) PD MEDICAL DECISION MAKING - ED course Complexity details: reviewed results, re-evaluated patient, considered differential, d/w patient ED course: The patient was worked up with CT scans of the head and neck, as well as face. He was given Ativan in the emergency department to help calm him down so that he could get his CT scans done, as well as Dilaudid when he complained of pain. The pt's scans were unremarkable, and the pt did steadily improve, mental status-schreiber, during his stay in the ED. However, he complained that his hands hurt, and he couldn't move them. When questioned further, the pain was global, and could not be pinpointed focally on exam. On exam, the pt seemed to have flacidity of his fingers, though wrists were strong. Pt when I was not in the room was noted to be using his hands, however. He did not have any spinal pain or fracture/dislocation on CT to raise concern for spinal cord injury. I sent the pt for MRI of the brain, with and without contrast, to make sure the pt had not had a stroke. Pt required more sedation for this, but study was negative. The pt was observed in the ED for more than 8 hours, and did show steady improvement, though he was still somewhat forgetful, and was somewhat unsteady on his feet. The pt wished to go home, and extensive work-up had been negative, and after a lengthy discussion with the pt and his , it was decided that the pt would be taken home. We have discussed that it is very important to follow up with PCP and neurology for possible seizures. We have also discussed concussion symptoms and timeline, as well as the usual indications for return. Departure - Departure Disposition: 01 Home, Self Care Clinical Impression: Concussion Qualifiers: Encounter type: initial encounter Loss of consciousness presence/duration: with LOC of 30 min or less Qualified Code(s): S06.0X1A - Concussion with loss of consciousness of 30 minutes or less, initial encounter Facial abrasion Qualifiers: Encounter type: initial encounter Qualified Code(s): S00.81XA - Abrasion of other part of head, initial encounter Episode of syncope Qualifiers: Syncope type: unspecified Qualified Code(s): R55 - Syncope and collapse Condition: Stable Instructions: ED Head Injury Closed, ED Fainting Unkn Cause Comments: Your laboratory studies look good, and CT scans of the head, face, and neck do not show any acute or serious injury. Because you were feeling is that you could not move your hand, an MRI of your brain was done to rule out any sort of Stroke that may have occurred during the fainting episode or thereafter. Your MRI was negative. At this point in time, it is very important that you follow- up with your primary doctor to discuss following up with a neurologist. You are instructed to do this over a year ago when you were seen for a possible seizure, and it is still important that you follow-up to determine whether you may have had a partial seizure that caused her symptoms today. There is no evidence of any problem with your heart or any of your other organs at this time. It is important that you continue to avoid alcohol. You will most likely have some headache and dizziness for the next couple of days to a week following your head injury. You will probably also have a sore neck and back from the impact. You may take ibuprofen and Tylenol to help with this, and apply ice and heat. You have been given a note for work for the next few days. Forms: Activity restrictions Discharge Date/Time: 07/31/21 20:35
[2021-07-31] MEDS ORDERED: LORazepam 2 MG/ML VIAL ONE (12:03)
[2021-07-31 12:27] LABS: BASOPHILS # (AUTO) 0.1 10^3/uL (0.0-0.1); BASOPHILS % (AUTO) 0.6 %; EOSINOPHILS # (AUTO) 0.2 10^3/uL (0.0-0.7); EOSINOPHILS % (AUTO) 1.8 %; HCT - HEMATOCRIT 45.4 % (42.0-52.0); HGB - HEMOGLOBIN 15.2 g/dL (14.0-18.0); LYMPHOCYTES # (AUTO) 1.6 10^3/uL (1.5-3.5); LYMPHOCYTES % (AUTO) 18.7 %; MEAN CORPUSCULAR HEMOGLOBIN 31.9 pg (27.0-31.0); MEAN CORPUSCULAR HGB CONC 33.5 g/dL (32.0-36.0); MEAN CORPUSCULAR VOLUME 95.4 fL (80.0-94.0); MEAN PLATELET VOLUME 10.1 fL (7.4-11.4); MONOCYTES # (AUTO) 0.4 10^3/uL (0.0-1.0); MONOCYTES % (AUTO) 4.8 %; NEUTROPHILS # (AUTO) 6.3 10^3/uL (1.5-6.6); NEUTROPHILS % (AUTO) 73.7 %; PLT - PLATELET COUNT 153 10^3/uL (130-450); RED BLOOD COUNT 4.76 10^6/uL (4.70-6.10); RED CELL DISTRIBUTION WIDTH 13.3 % (12.0-15.0); WHITE BLOOD COUNT 8.6 x10^3/uL (4.8-10.8)
--- NOTE | 2021-07-31 12:33 | CT Report ---
PROCEDURE: MAXILLOFACIAL WO INDICATIONS: fall/injury TECHNIQUE: Noncontrast 1.5 mm thick axial images acquired from the mandible through the frontal sinuses, with co jose and sagittal reformatting. For radiation dose reduction, the following was used: automated ex posure control, adjustment of mA and/or kV according to patient size. COMPARISON: CT head dated 06/06/2020. FINDINGS: Image quality: Excellent. Bones and teeth: Orbital shields are intact. Sinus shields show no fracture or deformity. Chronic appea ring deformity involving left anterior nasal bone unchanged from prior studies suggestive of remote l eft anterior nasal bone injury. No acute nasal bone fracture is seen. Nasal septum is intact. Visuali zed portions of the mandible demonstrate no fractures or subluxation. Zygomatic arches are intact. Pterygoid plates are intact. Visualized portions of the skull base and auditory canals are intact. Sinuses: Complete opacification of left maxillary sinus is again seen unchanged from prior study. Muc osal thickening is also noted in left ethmoid air cells. Rest of the paranasal sinuses are aerated, w ithout fluid levels, mucosal thickening, or mucoceles. Mastoid air cells are aerated. Soft tissues: No edema, masses, or fluid collections. No enlarged lymph nodes. No soft tissue lace rations or debris. Vascular: Visualized vascular structures appear normal in the absence of contrast. Bony vascular fo ramina and canals are intact. IMPRESSION: 1. No acute facial bone or nasal bone fracture. Suggestion of healed left anterior nasal bone injury with chronic-appearing deformity. 2. Chronic opacification of left maxillary sinus and mild mucosal thickening in left ethmoid air cell s suggestive of chronic sinusitis. 3. Bilateral orbital globes and orbital shields are intact. Reviewed by: Jason Jesus MD on 07/31/2021 12:31 PM PST Approved by: Jason Jesus MD on 07/31/2021 12:31 PM PST Station ID: [id number]
[2021-07-31 12:35] LABS: ALBUMIN 4.2 g/dL (3.2-5.5); ALBUMIN/GLOBULIN RATIO 1.1 (1.0-2.2); BILIRUBIN,TOTAL 0.9 mg/dL (0.2-1.0); CALCIUM 9.2 mg/dL (8.5-10.3); CREATININE 0.8 mg/dL (0.6-1.2); POTASSIUM 4.1 mmol/L (3.5-5.0); TOTAL PROTEIN 8.1 g/dL (6.7-8.2)
--- NOTE | 2021-07-31 12:35 | CT Report ---
PROCEDURE: HEAD WO INDICATIONS: fall/injury/ALOC TECHNIQUE: Noncontrast 4.5 mm thick angled axial sections acquired from the foramen magnum to the vertex. For r adiation dose reduction, the following was used: automated exposure control, adjustment of mA and/or kV according to patient size. COMPARISON: 06/06/2020, 06/16/2027. FINDINGS: Image quality: Excellent. CSF spaces: Basal cisterns are patent. No extra-axial fluid collections. Ventricles are normal in size and shape. Brain: No midline shift. No intracranial masses or hemorrhage. Kitchen-white matter interface is norm al. Skull and face: Calvarium and visualized facial bones are intact, without suspicious lesions. Sinuses: Opacification of left maxillary sinus is again seen unchanged from prior studies. Mild mucos al thickening in left ethmoid air cells are also noted. Rest of the paranasal sinuses are well aerate d. IMPRESSION: 1. No CT evidence of acute intracranial pathology. No significant changes from previous study. 2. Chronic opacification of left maxillary sinus and left ethmoid air cells. Reviewed by: Jason Jesus MD on 07/31/2021 12:33 PM PST Approved by: Jason Jesus MD on 07/31/2021 12:33 PM PST Station ID: [id number]
--- NOTE | 2021-07-31 12:40 | CT Report ---
PROCEDURE: CERVICAL SPINE WO INDICATIONS: fall/injury TECHNIQUE: Noncontrast 3 mm thick sections acquired from the skull base to the T4 level. Sagittal and coronal r eformats were then constructed. For radiation dose reduction, the following was used: automated exp osure control, adjustment of mA and/or kV according to patient size. COMPARISON: None. FINDINGS: Image quality: Excellent. Bones: No fractures or dislocations. There is straightening of normal cervical lordosis. Osteoarthr itic changes are noted between dens and anterior arch of C1. Degenerative endplate changes and loss o f disc height throughout cervical spine is seen. Prominent dorsal disc osteophyte complex formation a t C2-3 level is seen causing [id number] central canal stenosis and left worse than right bilate ral bony foraminal stenosis. Broad-based disc bulge and bilateral facet hypertrophic changes are also noted at C4-5 through C6-7 levels causing [id number] central canal stenosis and bilateral bony foraminal stenosis. Visualized superior ribs are intact. Soft tissues: Prevertebral soft tissues are normal in thickness. No paravertebral hematomas. No ap ical pneumothoraces. IMPRESSION: 1. No acute cervical spine fracture or dislocation. 2. Degenerative disc disease throughout cervical spine as described above more prominent at C2-3 angie enriquez Reviewed by: Jason Jesus MD on 07/31/2021 12:38 PM PST Approved by: Jason Jesus MD on 07/31/2021 12:38 PM PST Station ID: [id number]
[2021-07-31] MEDS ORDERED: KETOROLAC 30 MG/ML VIAL IVP STA (13:11)
[2021-07-31] MEDS ORDERED: HYDROmorphone 1 MG/ML CARPUJECT IVP STA (14:45)
[2021-07-31] MEDS ORDERED: GADOBUTROL 10 MMOL/10 ML VIAL ONE (16:15)
[2021-07-31] MEDS ORDERED: GADOBUTROL 10 MMOL/10 ML VIAL IVP ONE (16:21)
--- NOTE | 2021-07-31 19:43 | MRI Report ---
PROCEDURE: Brain W/WO INDICATIONS: LUE weakness CONTRAST: IV CONTRAST: Gadavist ml: 10 TECHNIQUE: Noncontrast axial T1 spin echo, axial T2 fast spin echo, sagittal and axial FLAIR, coronal T2 fast sp in echo, axial gradient echo, axial diffusion and ADC through the brain. After the administration of contrast, axial and coronal T1 spin echo with fat saturation through the brain. COMPARISON: Correlation is made with the head CT performed earlier in the day. Secondary to technical difficulties, this dictation was delayed. FINDINGS: Image quality: Excellent. CSF spaces: Basal cisterns are patent. No extra-axial fluid collections. Ventricles are normal in size and shape. Brain: No midline shift. No intracranial bleeds or masses. No abnormal intracranial enhancement. There is mild cerebral volume loss. There is mild periventricular white matter chronic small vessel ischemic change. The brainstem appears normal. Diffusion-weighted images demonstrate no acute ische inge insults. No chronic ischemic insults. Normal intravascular flow voids are present. Skull and face: Calvarial marrow is normal in signal. Orbits appear normal. Sinuses: There is complete opacification of the left maxillary sinus. Mild mucosal thickening is seen within the paranasal sinuses elsewhere. No significant abnormal fluid can be seen within the mastoid air cells. IMPRESSION: No imaging explanation is found for the patient's presenting symptoms. No findings of acute or subacute infarction are seen. No masses or abnormal enhancement can be seen. Mild brain parenchymal volume loss and chronic small vessel ischemic change can be seen. Focal left maxillary sinus disease noted, with milder paranasal sinus disease seen elsewhere. Reviewed by: Jung Agarwal MD on 07/31/2021 6:42 PM [facility] Approved by: Jung Agarwal MD on 07/31/2021 6:42 PM [facility] Station ID: [id number]
[2021-07-31] MEDS ORDERED: BACITRACIN ZINC OINT 1 PACKET TOP STA (19:53)
[2021-07-31 20:35] VITALS: BP 132/73
== END 2021-07-31 20:35 | disposition home or self-care (01) ==
LOC: EDBD → EDUNIT# → ED 11:37
DX: S06.0X1A Concussion with loss of consciousness of 30 minutes or less, initial encounter (principal); S00.81XA Abrasion of other part of head, initial encounter; W18.30XA Fall on same level, unspecified, initial encounter; F17.200 Nicotine dependence, unspecified, uncomplicated
CPT/HCPCS: 36415; 70450; 70486; 70553; 72125; 80053; 83690; 85025; 96374; 96375; 96376; 99284; A9270; A9585; J1170; J2060

== ENCOUNTER 2023-01-12 09:57 | Emergency (ER) | payer MEDICAID ==
[2023-01-12 10:32] VITALS: BP 149/85
--- NOTE | 2023-01-12 11:28 | XRAY Report ---
PROCEDURE: Knee 4 View RT INDICATIONS: Trauma TECHNIQUE: 4 views of the right knee(s) were acquired. COMPARISON: None. FINDINGS: Bones: Mild to moderate degenerative changes. No displaced fracture or dislocation. Patellar entheso erica. Suspected prominent osteophytes and possible loose body in the posterior joint space. Soft tissues: Small joint effusion. IMPRESSION: No acute radiographic abnormality. Degenerative changes and possible prominent osteophytes and/or loo se bodies in the posterior joint space. If there is high concern for further derangement, consider MR I evaluation. Reviewed by: Candido Ramirez MD on 01/12/2023 11:27 AM PDT Approved by: Candido Ramirez MD on 01/12/2023 11:27 AM PDT Station ID: [id number]
--- NOTE | 2023-01-12 12:34 | ED Physician Documentation ---
PD HPI LOWER EXT INJURY - Stated complaint Stated Complaint: RT LEG PX - Chief complaint Chief Complaint: Ext Problem - History obtained from History obtained from: Patient - Additional information Additional information: Patient is a 63-year-old male With a history of a thoracic aortic aneurysm and seizure disorder presenting for evaluation of right knee pain which radiates into his calf. Patient states that the pain has been worsening over the past several weeks. 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 He states that he is up and down on ladders a lot. Denies any known injury or trauma.Patient had a seizure approximately a year ago and reported having pain in both knees since that time. He was previously on meloxicam which seemed to help a little bit but then stopped working. He denies any recent travel or immobilization. Denies a history of PE or DVT.Denies chest pain or shortness of air. Review of Systems Constitutional: denies: Fever Cardiac: denies: Chest pain / pressure Respiratory: denies: Dyspnea GI: denies: Abdominal Pain Musculoskeletal: reports: Joint pain, Extremity swelling Neurologic: denies: Headache PD PAST MEDICAL HISTORY - Past Medical History Cardiovascular: None Respiratory: None Neuro: None Endocrine/Autoimmune: None GI: None : None HEENT: None Psych: None Musculoskeletal: Chronic back pain Derm: None - Past Surgical History Past Surgical History: Yes General: Colonoscopy - Present Medications Home Medications: Ambulatory Orders Medication Instructions Recorded Confirmed Levetiracetam [Keppra] 500 mg PO BID 01/12/23 01/12/23 Meloxicam 15 mg PO DAILY 01/12/23 01/12/23 Metoprolol Succinate [Toprol Xl] 25 mg PO DAILY 01/12/23 01/12/23 - Allergies Allergies/Adverse Reactions: Allergies Allergy/AdvReac Type Severity Reaction Status Date / Time No Known Drug Allergies Allergy Verified 01/12/23 10:25 - Social History Does the pt smoke?: Yes Smoking Status: Current every day smoker Does the pt drink ETOH?: Yes Does the pt have substance abuse?: Yes - Immunizations Immunizations are current?: No Immunizations: TDAP >10years/unknown, Other immun not current - POLST Patient has POLST: No PD ED PE NORMAL - General General: Alert and oriented X 3, No acute distress, Well developed/nourished - HEENT HEENT: Atraumatic - Neck Neck: Supple, no meningeal sign - Cardiac Cardiac: Strong equal pulses - Respiratory Respiratory: No respiratory distress - Derm Derm: Warm and dry - Extremities Extremities: No deformity, Normal ROM s pain, Other (Mild swelling to right calf when compared to left, mild tenderness to calf) - Neuro Neuro: Alert and oriented X 3, No motor deficit, No sensory deficit, Normal speech Results - Vitals Vitals: Vital Signs - 24 hr 01/12/23 10:25 Temperature 36.6 C Heart Rate 63 Respiratory 18 Rate Blood Pressure 149/85 H O2 Saturation 98 Oxygen O2 Source Room air PD Medical Decision Making - ED course Complexity details: reviewed results, re-evaluated patient, d/w patient ED course: Patient is a 63-year-old male presenting for evaluation of right knee pain that has been present for a few weeks and recently worsening.No specific trauma that he has noted. Neurovascularly intact with no deformity. He does have mild swelling distally and the leg. No known risk factors for DVT. An x-ray was obtained which I reviewed demonstrating degenerative changes. I did review these findings with the patient.We discussed evaluating for DVT and an ultrasound was Ordered. However patient eloped from the emergency department prior to getting the ultrasound.Nursing staff was unable to stop the patient so that we could have a discussion to try and convince him to stay for further testing. Departure - Departure Disposition: ED Elope Clinical Impression: Right knee pain Condition: Stable Discharge Date/Time: 01/12/23 13:35
== END 2023-01-12 13:35 | disposition left against medical advice (07) ==
LOC: ED 09:57
DX: M25.561 Pain in right knee (principal); F17.200 Nicotine dependence, unspecified, uncomplicated
CPT/HCPCS: 99283

== ENCOUNTER 2023-03-16 21:34 | Emergency (ER) | payer MEDICAID ==
[2023-03-16] MEDS ORDERED: LIDOCAINE 2% URO-JET 5 ML SYRINGE UR STA (22:53)
[2023-03-17 00:04] LABS: BILIRUBIN,URINE NEGATIVE (NEGATIVE); GLUCOSE, URINE (UA) NEGATIVE (NEGATIVE); KETONES,URINE (UA) NEGATIVE (NEGATIVE); LEUKOCYTE ESTERASE, URINE NEGATIVE (NEGATIVE); NITRITE,URINE NEGATIVE (NEGATIVE); OCCULT BLOOD,URINE MODERATE (NEGATIVE); PROTEIN,URINE NEGATIVE (NEGATIVE); UROBILINOGEN,URINE 0.2 (NORMAL) E.U./dL (NORMAL)
[2023-03-17 00:06] LABS: CLARITY,URINE CLEAR (CLEAR)
[2023-03-17 00:11] LABS: BACTERIA,URINE None Seen /HPF (None Seen); RBC,URINE 0-5 /HPF (0-5); SQUAMOUS EPITHELIAL CELL,UR NONE SEEN (<= Few); WBC,URINE 0-3 /HPF (0-3)
--- NOTE | 2023-03-17 01:17 | ED Physician Documentation ---
PD HPI MALE - Stated complaint Stated Complaint: - Chief complaint Chief Complaint: General - History obtained from History obtained from: Patient - Additional information Additional information: HPI from patient. Patient complains of inability to urinate despite increasing urge to do so, with gradually worsening suprapubic distention and pain. Symptoms began approximately 2 PM today. He denies history of similar symptoms. Review of Systems Constitutional: denies: Fever GI: denies: Abdominal Pain (suprapubic distention and pain , not abdominal pain per se), Nausea, Vomiting : reports: Unable to Void PD PAST MEDICAL HISTORY - Past Medical History Cardiovascular: None Respiratory: None Neuro: None Endocrine/Autoimmune: None GI: None : None HEENT: None Psych: None Musculoskeletal: Chronic back pain Derm: None - Past Surgical History Past Surgical History: Yes General: Colonoscopy - Present Medications Home Medications: Ambulatory Orders Medication Instructions Recorded Confirmed Levetiracetam [Keppra] 500 mg PO BID 01/12/23 01/12/23 Meloxicam 15 mg PO DAILY 01/12/23 01/12/23 Metoprolol Succinate [Toprol Xl] 25 mg PO DAILY 01/12/23 01/12/23 Rosuvastatin Calcium 20 mg PO DAILY 03/16/23 Tamsulosin [Flomax] 0.4 mg PO DAILY #20 cap 03/17/23 - Allergies Allergies/Adverse Reactions: Allergies Allergy/AdvReac Type Severity Reaction Status Date / Time No Known Drug Allergies Allergy Verified 03/16/23 22:16 - Social History Does the pt smoke?: Yes Smoking Status: Current every day smoker Does the pt drink ETOH?: Yes Does the pt have substance abuse?: Yes - Immunizations Immunizations are current?: No Immunizations: TDAP >10years/unknown, Other immun not current - POLST Patient has POLST: No PD ED PE NORMAL - Vitals Vital signs reviewed: Yes - General General: Alert and oriented X 3, No acute distress (by the time of my H+P, ED RN had already placed powell catheter), Well developed/nourished - Abdomen Abdomen: Soft, Non tender, Non distended Results - Vitals Vitals: Oxygen O2 Source Room air - Labs Labs: Laboratory Tests 03/16/23 23:36 Urine Color YELLOW Urine Clarity CLEAR Urine pH 5.0 Ur Specific Beverly <=1.005 Urine Protein NEGATIVE Urine Glucose (UA) NEGATIVE Urine Ketones NEGATIVE Urine Occult Blood MODERATE H Urine Nitrite NEGATIVE Urine Bilirubin NEGATIVE Urine Urobilinogen 0.2 (NORMAL) Ur Leukocyte Esterase NEGATIVE Urine RBC 0-5 Urine WBC 0-3 Ur Squamous Epith Cells NONE SEEN Urine Bacteria None Seen Ur Microscopic Review INDICATED Urine Culture Comments NOT INDICATED PD Medical Decision Making - ED course Complexity details: considered differential, d/w patient ED course: Patient presents with symptoms consistent with urinary retention; this is a new problem for him. ED RN informed that the patient was in obvious painful discomfort. ED RN informed me that the bedside bladder scanner showed over 500 cc. ED RN placed a Powell catheter. Subsequently, I evaluated the patient and patient is in NAD. Patient says he has had complete resolution of the symptoms subsequent to the placement of the Powell catheter. As I evaluate patient, there are 750 cc of clear, yellow urine in the collection system. There is intermittent ongoing output during my H&P. Urinalysis is essentially unremarkable; there is moderate blood noted on the macro, but no RBCs on microscopy. This finding is likely due to the insertion of the Powell catheter. At this time, there is no indication for other emergent tests. Suspect BPH, but patient needs to follow-up not only for removal of the Powell catheter, but consideration of further testing in the outpatient setting regarding the etiology of his urinary retention. He is discharged with catheter still in place. Advised to seek follow-up with his primary care provider within no more than 1 week for removal of the Powell catheter and reevaluation. Return precautions discussed. He is given a dose of tamsulosin in the emergency department (0.4 mg p.o.), and I submitted a prescription to patient's pharmacy of choice tamsulosin 0.4mg QD x 20 tabs. Departure - Departure Disposition: Home, Self Care Clinical Impression: Urinary retention Condition: Good Instructions: ED Catheter Care Tutu, ED Retention Urinary Male Prescriptions: Tamsulosin [Flomax] 0.4 mg PO DAILY #20 cap Comments: I have electronically submitted a prescription for tamsulosin (Flomax, medication that can help make the prostate smaller and less make it easier to urinate) to the [facility] pharmacy in [place]. You were given the first dose in emergency department prior to discharge. Contact your primary care provider's office in the morning to arrange for next available appointment with them for reevaluation and to inquire as to a urology referral being expedited. As we discussed, the catheter should be removed within the next 5 days, no more than a week (risk of infection increases the longer the catheter is in). Forms: PCP List Discharge Date/Time: 03/17/23 02:06
[2023-03-17] MEDS ORDERED: TAMSULOSIN 0.4 MG CAPSULE PO STA (01:35)
[2023-03-17 02:07] VITALS: BP 137/87; O2SAT 100
== END 2023-03-17 02:06 | disposition home or self-care (01) ==
LOC: ED 21:34
DX: R33.9 Retention of urine, unspecified (principal); F17.200 Nicotine dependence, unspecified, uncomplicated
CPT/HCPCS: 51702; 51798; 81001; 99283; A9270; 81003; 87086